=== PATIENT | female | born 1935 | race Caucasian/White ===

== ENCOUNTER 2021-10-21 15:10 | Inpatient (IN) | payer MEDICARE ==
[~2021-10-21] VITALS: Ht 162.6 cm; Wt 86.6 kg
[2021-10-21] MEDS ORDERED: SODIUM CHLORIDE 0.9% 500ML 500 ML ONE (15:40)
[2021-10-21] MEDS ORDERED: ADENOSINE 6MG/2ML 5 ML ONE (15:40)
[2021-10-21] MEDS ORDERED: METOPROLOL TARTRATE INJ 1 MG/ML VIAL ONE (15:40)
[2021-10-21] MEDS ORDERED: ASPIRIN 81 MG CHEW TAB PO STA (15:40)
[2021-10-21] MEDS ORDERED: METOPROLOL TARTRATE 25 MG TAB PO ONE (15:45)
[2021-10-21] MEDS ORDERED: ADENOSINE 6 MG/2 ML VIAL IV ONE ×3 (15:45→21:45)
[2021-10-21] MEDS ORDERED: SODIUM CHLORIDE 0.9% 500ML 500 ML IV ONE (15:45)
[2021-10-21 15:51] LABS: BASOPHILS # (AUTO) 0.1 (0.0-0.1); BASOPHILS % 0.5 % (0.0-1.0); EOSINOPHILS # (AUTO) 0.2 (0.0-0.4); EOSINOPHILS % 1.9 % (0.0-6.0); HEMATOCRIT 40.4 % (34.2-44.1); HEMOGLOBIN 12.1 g/dL (12.0-16.0); LYMPHOCYTES # (AUTO) 1.8 (1.0-3.2); LYMPHOCYTES % 17.8 % (18.0-39.1); MEAN CORPUSCULAR HEMOGLOBIN 27.6 pg (28-32); MEAN CORPUSCULAR VOLUME 92.2 fL (81-99); MONOCYTES # (AUTO) 0.7 (0.2-0.8); MONOCYTES % 6.7 % (4.4-11.3); NEUTROPHILS # (AUTO) 7.5 (2.1-6.9); NEUTROPHILS % 72.9 % (38.7-80.0); PLATELET COUNT 821 x10e3/uL (140-360); RED BLOOD COUNT 4.38 x10e6/uL (3.6-5.1); RED CELL DISTRIBUTION WIDTH 16.1 % (11.7-14.4)
[2021-10-21] MEDS ORDERED: CLOPIDOGREL75 MG PO (15:51)
[2021-10-21] MEDS ORDERED: ISOSORBIDE MONO30 MG PO (15:51)
[2021-10-21] MEDS ORDERED: METFORMIN HCL500 MG PO (15:51)
[2021-10-21] MEDS ORDERED: LORATADINE10 MG PO (15:51)
[2021-10-21] MEDS ORDERED: LEXAPRO10 MG PO (15:51)
[2021-10-21] MEDS ORDERED: BENICAR20 MG PO (15:51)
[2021-10-21] MEDS ORDERED: AZELASTINE 0.1% (15:51)
[2021-10-21] MEDS ORDERED: LIPITOR20 MG PO (15:51)
[2021-10-21 15:55] LABS: INR 0.99; PARTIAL THROMBOPLASTIN TIME 29.8 seconds (23.8-35.5); PROTHROMBIN TIME 13.8 seconds (11.9-14.5)
[2021-10-21 16:05] LABS: ALBUMIN/GLOBULIN RATIO 1.3 (0.8-2.0); ANION GAP 18.5 mmol/L (8-16); CALCIUM 9.7 mg/dL (8.4-10.2); CREATININE, SERUM 1.11 mg/dL (0.57-1.11); MAGNESIUM 1.5 MG/DL (1.3-2.1); POTASSIUM 4.5 mmol/L (3.5-5.1)
[2021-10-21 16:11] LABS: CREATINE KINASE MB 1.2 ng/mL (0-5.0)
[2021-10-21] MEDS: METOPROLOL SUCCINATE 25 MG TAB XL PO SCH (16:25)
[2021-10-21] MEDS ORDERED: NITROGLYCERIN 0.4 MG SUBL SL PRN (17:15)
[2021-10-21] MEDS ORDERED: ONDANSETRON HCL INJ 2MG/ML 2ML 2 MG/ML VIAL IV PRN (17:15)
[2021-10-21] MEDS: FAMOTIDINE 20 MG/2 ML VIAL IV SCH (17:56)
[2021-10-21] MEDS ORDERED: METFORMIN HCL 500 MG TAB PO SCH (18:00)
[2021-10-21 18:07] LABS: FREE THYROXINE INDEX 2.4457 (1.4-3.8); THYROID STIMULATING HORMONE 1.169 uIU/mL (0.350-4.940)
[2021-10-21 18:19] VITALS: BP 154/62
[2021-10-21] MEDS ORDERED: TYLENOL325 MG PO (18:22)
[2021-10-21] MEDS ORDERED: ATENOLOL50 MG PO (18:23)
[2021-10-21 18:26] VITALS: BP 154/62
[2021-10-21 20:16] VITALS: BP 118/57
[2021-10-21 20:40] VITALS: BP 118/57
[2021-10-21] MEDS ORDERED: ADENOSINE 6MG/2ML 1 ML ONE (21:52)
[2021-10-21] MEDS: ATORVASTATIN 20 MG TAB PO SCH (22:01)
[2021-10-21 23:33] LABS: CREATINE KINASE MB 4.5 ng/mL (0-5.0)
[2021-10-22] VITALS (8 sets, daily range): BP systolic 127–177; BP diastolic 52–83
[2021-10-22 00:25] LABS: BACTERIA,URINE FEW /HPF; CLARITY,URINE CLEAR (CLEAR); COLOR,URINE YELLOW (YELLOW); EPITHELIAL CELLS,URINE FEW /LPF; KETONES,URINE NEGATIVE (NEGATIVE); LEUKOCYTE ESTERASE ,URINE NEGATIVE (NEGATIVE); NITRITE,URINE NEGATIVE (NEGATIVE); PROTEIN,URINE DIPSTICK NEGATIVE (NEGATIVE); RBC,URINE 0-5 /HPF (0-5); URINE UROBILINOGEN 0.2 mg/dL (0.2 - 1); WBC,URINE (MAN) 0-5 /HPF (0-5)
[2021-10-22] MEDS ORDERED: POLYETHYLENE GLYCOL 3350 17 GM PACK PO PRN (02:30)
[2021-10-22] MEDS ORDERED: METOPROLOL TARTRATE INJ 1 MG/ML VIAL IV PRN (02:30)
[2021-10-22] MEDS ORDERED: TEMAZEPAM 15 MG CAP PO PRN (02:30)
[2021-10-22] MEDS ORDERED: MAGNESIUM SULFATE 2GM/50ML 50 ML IV ONE (02:45)
[2021-10-22] MEDS ORDERED: SODIUM CHLORIDE 0.9% 250ML 250 ML ONE (03:10)
[2021-10-22] MEDS: FAMOTIDINE 20 MG/2 ML VIAL IV SCH (05:04)
[2021-10-22 05:59] LABS: BASOPHILS % 0.4 % (0.0-1.0); EOSINOPHILS # (AUTO) 0.2 (0.0-0.4); EOSINOPHILS % 2.3 % (0.0-6.0); HEMATOCRIT 35.4 % (34.2-44.1); HEMOGLOBIN 11.2 g/dL (12.0-16.0); LYMPHOCYTES # (AUTO) 1.6 (1.0-3.2); LYMPHOCYTES % 20.4 % (18.0-39.1); MEAN CORPUSCULAR HEMOGLOBIN 28.1 pg (28-32); MEAN CORPUSCULAR HGB CONC 31.6 g/dL (31-35); MEAN CORPUSCULAR VOLUME 88.7 fL (81-99); MONOCYTES # (AUTO) 0.7 (0.2-0.8); MONOCYTES % 8.4 % (4.4-11.3); NEUTROPHILS # (AUTO) 5.4 (2.1-6.9); RED BLOOD COUNT 3.99 x10e6/uL (3.6-5.1); RED CELL DISTRIBUTION WIDTH 15.9 % (11.7-14.4)
[2021-10-22 06:27] LABS: ALBUMIN 3.5 g/dL (3.5-5.0); CALCIUM 9.3 mg/dL (8.4-10.2); CREATININE, SERUM 0.88 mg/dL (0.57-1.11)
[2021-10-22 06:28] LABS: ALBUMIN/GLOBULIN RATIO 1.3 (0.8-2.0)
[2021-10-22 06:35] LABS: CREATINE KINASE MB 4.2 ng/mL (0-5.0)
[2021-10-22 06:41] LABS: PLATELET COUNT 574 x10e3/uL (140-360)
[2021-10-22 06:52] LABS: CHOL/HDL RATIO 2.8 (3.0-3.6)
[2021-10-22] MEDS ORDERED: ONDANSETRON HCL 4 MG ORAL DISINTEGRATING TAB PO PRN (08:15)
[2021-10-22] MEDS: ESCITALOPRAM OXALATE 10 MG TAB PO SCH (09:07)
[2021-10-22] MEDS: ASPIRIN 81 MG ENTERIC COATED PO SCH (09:07)
[2021-10-22] MEDS: CLOPIDOGREL BISULFATE 75 MG TAB PO SCH (09:07)
[2021-10-22] MEDS: METOPROLOL SUCCINATE 25 MG TAB XL PO SCH ×3 (09:07→21:07)
[2021-10-22] MEDS: LORATADINE 10 MG TAB PO SCH (09:07)
[2021-10-22] MEDS: METFORMIN HCL 500 MG TAB PO SCH ×2 (09:07→17:40)
[2021-10-22 14:52] LABS: CREATINE KINASE MB 2.9 ng/mL (0-5.0)
[2021-10-22] MEDS: ACETAMINOPHEN 325 MG TAB PO PRN (20:16)
[2021-10-22] MEDS: ATORVASTATIN 20 MG TAB PO SCH (21:06)
[2021-10-22] MEDS: FAMOTIDINE 20 MG TAB PO SCH (21:07)
[2021-10-23] VITALS: BP 149/72
[2021-10-23 04:00] VITALS: BP 183/53
[2021-10-23] MEDS: ACETAMINOPHEN 325 MG TAB PO PRN (04:18)
[2021-10-23 06:49] LABS: BASOPHILS % 0.3 % (0.0-1.0); EOSINOPHILS # (AUTO) 0.3 (0.0-0.4); EOSINOPHILS % 4.1 % (0.0-6.0); HEMATOCRIT 35.6 % (34.2-44.1); HEMOGLOBIN 11.2 g/dL (12.0-16.0); LYMPHOCYTES # (AUTO) 1.5 (1.0-3.2); LYMPHOCYTES % 22.7 % (18.0-39.1); MEAN CORPUSCULAR HEMOGLOBIN 27.9 pg (28-32); MEAN CORPUSCULAR HGB CONC 31.5 g/dL (31-35); MEAN CORPUSCULAR VOLUME 88.8 fL (81-99); MONOCYTES # (AUTO) 0.6 (0.2-0.8); MONOCYTES % 8.9 % (4.4-11.3); NEUTROPHILS # (AUTO) 4.2 (2.1-6.9); NEUTROPHILS % 63.7 % (38.7-80.0); PLATELET COUNT 594 x10e3/uL (140-360); RED BLOOD COUNT 4.01 x10e6/uL (3.6-5.1); RED CELL DISTRIBUTION WIDTH 15.9 % (11.7-14.4)
[2021-10-23 07:16] LABS: ANION GAP 13.1 mmol/L (8-16); POTASSIUM 4.1 mmol/L (3.5-5.1)
[2021-10-23 07:40] LABS: CALCIUM 9.2 mg/dL (8.4-10.2); CREATININE, SERUM 0.93 mg/dL (0.57-1.11)
[2021-10-23 07:59] VITALS: BP 170/60
[2021-10-23 08:06] VITALS: BP 170/60
[2021-10-23 08:13] LABS: MAGNESIUM 1.8 MG/DL (1.3-2.1)
[2021-10-23] MEDS: FAMOTIDINE 20 MG TAB PO SCH (08:50)
[2021-10-23] MEDS: ESCITALOPRAM OXALATE 10 MG TAB PO SCH (08:50)
[2021-10-23] MEDS: CLOPIDOGREL BISULFATE 75 MG TAB PO SCH (08:50)
[2021-10-23] MEDS: ASPIRIN 81 MG ENTERIC COATED PO SCH (08:50)
[2021-10-23] MEDS: LORATADINE 10 MG TAB PO SCH (08:50)
[2021-10-23] MEDS: METFORMIN HCL 500 MG TAB PO SCH (08:50)
[2021-10-23] MEDS ORDERED: BENICAR20 MG PO (10:03)
[2021-10-23] MEDS ORDERED: TOPROL XL25 MG PO (10:35)
[2021-10-23] MEDS ORDERED: ASPIRIN EC81 MG PO (10:35)
[2021-10-23] MEDS: METOPROLOL SUCCINATE 25 MG TAB XL PO SCH (11:00)
[2021-10-23 11:57] LABS: CREATINE KINASE MB 2.2 ng/mL (0-5.0)
== END 2021-10-23 12:00 | disposition home or self-care (01) | DRG 309 ==
LOC: ER 15:40 → ERHOLD 17:16 → MED/SURG 18:15
PROVIDERS: ADMIT Internal Medicine; ATTEND Internal Medicine
DX: I47.1 Supraventricular tachycardia (principal); I25.110 Atherosclerotic heart disease of native coronary artery with unstable angina pectoris; I11.9 Hypertensive heart disease without heart failure; E11.69 Type 2 diabetes mellitus with other specified complication; E66.01 Morbid (severe) obesity due to excess calories; E78.5 Hyperlipidemia, unspecified; I25.10 Atherosclerotic heart disease of native coronary artery without angina pectoris; E83.42 Hypomagnesemia; D47.3 Essential (hemorrhagic) thrombocythemia; D72.829 Elevated white blood cell count, unspecified; Z79.84 Long term (current) use of oral hypoglycemic drugs; Z95.5 Presence of coronary angioplasty implant and graft; Z88.1 Allergy status to other antibiotic agents; Z20.822 Contact with and (suspected) exposure to COVID-19; Z68.32 Body mass index [BMI] 32.0-32.9, adult; Z79.82 Long term (current) use of aspirin
CPT/HCPCS: 36415; 71045; 80048; 80053; 80061; 81001; 82550; 82553; 82948; 83036; 83735; 83880; 84100; 84436; 84443; 84479; 84484; 85025; 85610; 85730; 93005; 93306; 94799; 99284; J0153; J3475; J7040; J7050; U0002

== ENCOUNTER → 2025-06-09 | Outpatient (REF) | payer MEDICARE ==
[~2025-06-09] MED LIST: ASPIRIN EC81 MG PO; ATENOLOL50 MG PO; AZELASTINE 0.1%; BENICAR20 MG PO; CLOPIDOGREL75 MG PO; IOPAMIDOL 370 MG/ML 100 ML INFUS..BTL INJ ONE; ISOSORBIDE MONO30 MG PO; LEXAPRO10 MG PO; LIPITOR20 MG PO; LORATADINE10 MG PO; METFORMIN HCL500 MG PO; NITROGLYCERIN 0.4 MG SUBL ONE; SODIUM CHLORIDE 0.9% 100 ML ONE; TOPROL XL25 MG PO; TYLENOL325 MG PO
[2025-06-09 09:41] LABS: EST GLOMERULAR FILTRATION RATE 55.0 ML/MIN (>=60)
== END ==
LOC: CT 08:49
PROVIDERS: ATTEND Internal Medicine Cardiovascular Disease
DX: R06.02 Shortness of breath (principal)
CPT/HCPCS: 36415; 75574; 75580; 82565; 84520; J7050; Q9967